=== PATIENT | male | born 1965 | race Caucasian/White ===

== ENCOUNTER → 2024-10-21 | Outpatient (CLI) | payer BC, SELFPAY ==
--- NOTE | 2024-10-21 12:21 | XR_ITS ---
Examination: Knee, right , 3 views Technique: Knee AP, lateral, oblique 3 views Date and time of exam: October 21, 2024 1227 hours INDICATIONS: Right knee pain beginning one month ago. FINDINGS: Severe osteopenia Moderate to advanced tricompartment osteoarthritis, most severe medial and patellofemoral joints No fractures IMPRESSION: Moderate to advanced tricompartment osteoarthritis
== END | disposition home or self-care (01) ==
LOC: CDIM 12:15
PROVIDERS: PCP Family Medicine; Referring Provider Family Medicine; Visit Provider Family Medicine
DX: M17.11 Unilateral primary osteoarthritis, right knee (principal)
CPT/HCPCS: 73562

== ENCOUNTER 2024-12-13 12:44 | Outpatient (AMB) | payer BC, SELFPAY ==
--- NOTE | 2024-12-13 12:57 | ORTHONT_ITS ---
Vital signs 12/13/24 13:00 Height 1.85 m Height Method Stated Weight 154.732 kg Weight Measurement Method Standing Scale BMI 45.0 BP 142/87 H Blood Pressure Source Automatic Cuff Blood Pressure Location Left Upper Arm Position Sitting Respiration 19 Pulse 66 Pulse Source Monitor Temp 97.6 F Temp Source Temporal Artery Scan Pulse Oximetry (%) 96 Oxygen Delivery Method Room Air Med/Allergies Allergies & Medications Allergies No Known Allergies Allergy (Verified 12/13/24 13:01) Medication Reconciliation amitriptyline 25 mg tablet 25 mg PO QDAY 10/26/23 [History Confirmed 12/13/24] amlodipine 10 mg-benazepril 40 mg capsule 1 cap PO QDAY 10/26/23 [History Confirmed 12/13/24] celecoxib 200 mg capsule 200 mg PO QDAY 10/26/23 [History Confirmed 12/13/24] cholecalciferol (vitamin D3) 25 mcg (1,000 unit) capsule (Vitamin D3) 25 mcg PO QDAY 10/26/23 [History Confirmed 12/13/24] doxazosin 4 mg tablet 4 mg PO HS 10/26/23 [History Confirmed 12/13/24] zolpidem 10 mg tablet 10 mg PO HS 10/26/23 [History Confirmed 12/13/24] Held on 10/26/23. Instructions: Resume on 10/27/23. Exam Exam Breathing is nonlabored. Patient has a normal mood and affect. Bilateral extremities were evaluated and demonstrates sensation intact to light touch. Palpable pedal pulses are present. No significant edema is present. Bilateral hips were examined. The patient has no pain with log roll of the hips. Internal rotation to 30 degrees and external rotation to 30 degrees is painless. Negative FADIR. Left knee was examined today. The left knee is in reasonable alignment. Range of motion from 0-120 degrees. Knee is stable to varus and valgus as well as AP translation with <5mm. Patient has a negative McMurrays. There is no pain with patellofemoral compression and no crepitus noted. The knee is nontender to palpation. The right knee was also examined. The right knee is in varus alignment. Range of motion from 0-115 degrees. Knee is stable to varus and valgus as well as AP translation with <5mm. Patient has a negative McMurrays. There is no pain with patellofemoral compression and no crepitus noted. The knee is tender to palpation medially. Nonweightbearing x-rays were reviewed. This demonstrates to space narrowing medially. Assessment and Plan Problem List (1) Arthritis of right knee: Status: Acute Plan: Patient is a pleasant 59-year-old male with right knee pain and right knee arthritis. We discussed different treatment options. I would recommend conservative treatment and weightbearing x-rays to better evaluate the severity. 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) MA Intake Visit Data Collection New Patient or Established: New Patient (never been to [facility]) Reason for Visit:: LEFT KNEE PAIN Seen by Clinical Staff ONLY (RN/MA): No PCP or OBGYN visit in last 3 months: Yes Hx Now: No Do You Feel Safe at Home: Yes Authorities Contacted: N/A Questionairres Past Medical History Past Medical History Have you ever been diagnosed with any of the following: Neurological Problems Seizures: No Cardiology Problems Congestive Heart Failure: No Hypertension: Yes Respiratory Problems Chronic Obstructive Pulmonary Disease (COPD): No Asthma: No Smoking: No Smoking Exposure: No Stomache/Intestinal Problems Gastrointestinal Bleed: Yes Hemorrhoids: Yes Obesity: Yes Genital/Urinary Problems Renal Disease: No Kidney Stones: Yes Musculoskeletal Problems Arthritis: Yes Endocrine Problems Diabetes Mellitus Type 1: No Diabetes Mellitus Type 2: No Blood Problems Sickle Cell Disease: No Other Problems Hospitalization: No Falls: No Blood Transfusions: No Anesthesia Reactions: No Chicken Pox: Yes Measles: No Mumps: No Cancer: No Subjective Visit Visit for: new patient and knee Immunization / Flu Flu Vaccine in the Last 12 Months: Yes Flu Vaccine Exclusion Criteria: Already Received History of Present Illness Chief complaint: bilateral knee pain worse on the right Henri is a pleasant 59-year-old male with right knee pain. The right knee pain has been increased within the last 7 months. Has not had any injections. He tried diclofenac oral medications in the past. Reports it helped somewhat. 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
[2024-12-13 13:00] VITALS: BP 142/87; PULSE 66; RESP 19; TEMP 36.4; O2SAT 96; BMI 45.0
--- NOTE | 2024-12-13 13:08 | XR_ITS ---
Examination: Bilateral knees 2 views Right lateral knee left lateral knee 2 views Right occipital the left ischial knee 2 views TECHNIQUE: Bilateral AP knees standing single view, bilateral PND standing single view flexion Standing right lateral knee left lateral knee 2 views Right axial knee left axial knee 2 views total 6 views Date and time: December 13, 2024, 1320 hours INDICATIONS: Right knee pain beginning in 7 months ago. FINDINGS: Advanced narrowing medial joint space right and left knee Bilateral moderate to advanced osteoarthritis patellofemoral joints No fracture is No patellar dislocations IMPRESSION: Advanced narrowing medial joint spaces right and left knee Bilateral moderate to advanced osteoarthritis patellofemoral joints
== END 2024-12-13 13:17 | disposition home or self-care (01) ==
PROVIDERS: PCP Family Medicine; Referring Provider Family Medicine; Supervising Provider Orthopaedic Surgery Adult Reconstructive Orthopaedic Surgery; Visit Provider Orthopaedic Surgery Adult Reconstructive Orthopaedic Surgery
DX: M17.11 Unilateral primary osteoarthritis, right knee (principal); M25.561 Pain in right knee; I10 Essential (primary) hypertension
CPT/HCPCS: 73564; 99204; G0463

== ENCOUNTER 2025-01-05 12:37 | Outpatient (AMB) | payer BC, SELFPAY ==
--- NOTE | 2025-01-05 13:05 | ORTHONT_ITS ---
Vital signs 01/05/25 13:10 Height 1.85 m Height Method Measured Weight 150.734 kg Weight Measurement Method Standing Scale BMI 44.0 BP 135/81 H Blood Pressure Source Automatic Cuff Blood Pressure Location Left Upper Arm Position Sitting Respiration 18 Pulse 65 Pulse Source Monitor Temp 97.1 F Temp Source Temporal Artery Scan Pulse Oximetry (%) 95 Oxygen Delivery Method Room Air Med/Allergies Allergies & Medications Allergies No Known Allergies Allergy (Verified 01/05/25 13:12) Medication Reconciliation amitriptyline 25 mg tablet 25 mg PO QDAY 10/26/23 [History Confirmed 01/05/25] amlodipine 10 mg-benazepril 40 mg capsule 1 cap PO QDAY 10/26/23 [History Confirmed 01/05/25] celecoxib 200 mg capsule 200 mg PO QDAY 10/26/23 [History Confirmed 01/05/25] cholecalciferol (vitamin D3) 25 mcg (1,000 unit) capsule (Vitamin D3) 25 mcg PO QDAY 10/26/23 [History Confirmed 01/05/25] doxazosin 4 mg tablet 4 mg PO HS 10/26/23 [History Confirmed 01/05/25] zolpidem 10 mg tablet 10 mg PO HS 10/26/23 [History Confirmed 01/05/25] Held on 10/26/23. Instructions: Resume on 10/27/23. Exam Exam Breathing is nonlabored. Patient has a normal mood and affect. Bilateral extremities were evaluated and demonstrates sensation intact to light touch. Palpable pedal pulses are present. No significant edema is present. Bilateral hips were examined. The patient has no pain with log roll of the hips. Internal rotation to 30 degrees and external rotation to 30 degrees is painless. Negative FADIR. Left knee was examined today. The left knee is in reasonable alignment. Range of motion from 0-120 degrees. Knee is stable to varus and valgus as well as AP translation with <5mm. Patient has a negative McMurrays. There is no pain with patellofemoral compression and no crepitus noted. The knee is nontender to palpation. The right knee was also examined. The right knee is in varus alignment. Range of motion from 0-115 degrees. Knee is stable to varus and valgus as well as AP translation with <5mm. Patient has a negative McMurrays. There is no pain with patellofemoral compression and no crepitus noted. The knee is tender to palpatio n medially. X-rays demonstrate complete joint space narrowing medially on both the right and left knee. There is varus deformity Assessment and Plan Problem List (1) Arthritis of right knee: Status: Acute Plan: Patient is a pleasant 59-year-old male with right knee pain and right knee arthritis. We discussed different treatment options. I would recommend conservative treatment as he is not an ideal candidate right now to BMI of 44. We discussed weight loss in great detail today. We discussed anti- inflammatories as well injections. He would like a cortisone injection today Recommend knee cortisone injection as patient would like to proceed with conservative treatment at this time. The risks and benefits of the procedure were reviewed with the patient and patient gave verbal consent to continue with the procedure. Procedure: performed by Dr. Mitchell Using sterile technique the Right knee was thoroughly prepped with alcohol, and approximately 1 cc of Kenalog 40 mg/mL and 4 cc of 1% lidocaine was injected without resistance into the medial tibial femoral joint space. The patient tolerated the procedure. Office Procedures GNS Level of Care Nursing/Assessment Patient Status: Established Patient Nursing Assessment/Reassesment: Medication Reconciliation, Update PMH in EMR and Vital Signs Coordination of Care: Complex Care and Chronic Disease 1-5, Education Complex Pt/Fam, Consent,records obtained, informed consent, Results/Orders obtained and Staff clarify orders Established Patient Charge Established Patient Point Assignment: 95 Established Patient Point Charge: EP Level 3 (80-115) Surgical Proc/IM SQ injection Major Surgical Procedure: Yes (KNEE INJECTION) Medication Given Medication Given Medication Given: Yes Documented Dose Given: 4 Route: Infiitration Medication Given Medication Given Medication Given: Yes Documented Dose Given: 1 Route: Infiitration Office Meds Xylocaine 10 mg/mL (1 %) injection solution Performing Provider: Ernie Mitchell MD Performing Location: [facility] Administered by: Charissa Chisholm on 01/05/25 13:40 Dose Route Admin Location Dispensed Lot Number Expiration Date [facility] [employer] 20 mL Infiltration 20 mL [id number] 03/21/28 43444-418-60 [facility] triamcinolone acetonide 40 mg/mL suspension for injection Performing Provider: Ernie Mitchell MD Performing Location: [facility] Administered by: Ernie Mitchell MD on 01/05/25 13:40 Dose Route Admin Location Dispensed Lot Number Expiration Date [facility] Hotel Guest [employer] Agent 40 mg intra-articular KNEE 1 mL [id number] 07/21/26 50855-146-02 [employer]AN[employer] Intake Visit Data Collection New Patient or Established: Established Patient (seen at [facility] within 3 years) Reason for Visit:: XRAY RESULTS/KNEE INJECTIONS Seen by Clinical Staff ONLY (RN/MA): No Correspondence Specialist Required: No PCP or OBGYN visit in last 3 months: Yes Hx Now: No Do You Feel Safe at Home: Yes Authorities Contacted: N/A Questionairres Past Medical History Past Medical History Have you ever been diagnosed with any of the following: Neurological Problems Seizures: No Cardiology Problems Congestive Heart Failure: No Hypertension: Yes Respiratory Problems Chronic Obstructive Pulmonary Disease (COPD): No Asthma: No Smoking: No Smoking Exposure: No Stomache/Intestinal Problems Gastrointestinal Bleed: Yes Hemorrhoids: Yes Obesity: Yes Genital/Urinary Problems Renal Disease: No Kidney Stones: Yes Musculoskeletal Problems Arthritis: Yes Endocrine Problems Diabetes Mellitus Type 1: No Diabetes Mellitus Type 2: No Blood Problems Sickle Cell Disease: No Other Problems Hospitalization: No Falls: No Blood Transfusions: No Anesthesia Reactions: No Chicken Pox: Yes Measles: No Mumps: No Cancer: No Subjective Visit Visit for: follow up visit and knee Immunization / Flu Flu Vaccine in the Last 12 Months: No Flu Vaccine Exclusion Criteria: No Exclusion Criteria History of Present Illness Chief complaint: XRAY RESULTS/KNEE INJECTIONS Henri is a pleasant 59-year-old male with right knee pain. The right knee pain has been increased within the last 7 months. Has not had any injections. He tried Celebrex oral medications in the past. Reports it helped somewhat. He has tried to lose weight. 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
[2025-01-05 13:10] VITALS: BP 135/81; PULSE 65; RESP 18; TEMP 36.2; O2SAT 95; BMI 44.0
== END 2025-01-05 13:32 | disposition home or self-care (01) ==
PROVIDERS: PCP Family Medicine; Referring Provider Family Medicine; Supervising Provider Orthopaedic Surgery Adult Reconstructive Orthopaedic Surgery; Visit Provider Orthopaedic Surgery Adult Reconstructive Orthopaedic Surgery
DX: M17.11 Unilateral primary osteoarthritis, right knee (principal); M25.561 Pain in right knee; I10 Essential (primary) hypertension; E66.9 Obesity, unspecified; Z68.41 Body mass index [BMI] 40.0-44.9, adult
CPT/HCPCS: 20610; 99213; J3301; J3490; G0463

== ENCOUNTER 2025-04-14 09:09 | Outpatient (AMB) | payer BC, SELFPAY ==
[2025-04-14 09:37] VITALS: BP 136/76; PULSE 63; RESP 19; TEMP 36.6; O2SAT 92; BMI 43.0
--- NOTE | 2025-04-14 09:37 | ORTHONT_ITS ---
Vital signs 04/14/25 09:37 Height 1.85 m Height Method Measured Weight 147.418 kg Weight Measurement Method Standing Scale BMI 43.0 BP 136/76 H Blood Pressure Source Automatic Cuff Blood Pressure Location Left Upper Arm Position Sitting Respiration 19 Pulse 63 Pulse Source Monitor Temp 97.9 F Temp Source Temporal Artery Scan Pulse Oximetry (%) 92 L Oxygen Delivery Method Room Air Med/Allergies Allergies & Medications Allergies No Known Allergies Allergy (Verified 04/14/25 09:38) Medication Reconciliation amitriptyline 25 mg tablet 25 mg PO QDAY 10/26/23 [History Confirmed 04/14/25] amlodipine 10 mg-benazepril 40 mg capsule 1 cap PO QDAY 10/26/23 [History Confirmed 04/14/25] celecoxib 200 mg capsule 200 mg PO QDAY 10/26/23 [History Confirmed 04/14/25] cholecalciferol (vitamin D3) 25 mcg (1,000 unit) capsule (Vitamin D3) 25 mcg PO QDAY 10/26/23 [History Confirmed 04/14/25] doxazosin 4 mg tablet 4 mg PO HS 10/26/23 [History Confirmed 04/14/25] zolpidem 10 mg tablet 10 mg PO HS 10/26/23 [History Confirmed 04/14/25] Held on 10/26/23. Instructions: Resume on 10/27/23. Exam Exam Breathing is nonlabored. Patient has a normal mood and affect. Bilateral extremities were evaluated and demonstrates sensation intact to light touch. Palpable pedal pulses are present. No significant edema is present. Bilateral hips were examined. The patient has no pain with log roll of the hips. Internal rotation to 30 degrees and external rotation to 30 degrees is painless. Negative FADIR. Left knee was examined today. The left knee is in reasonable alignment. Range of motion from 0-120 degrees. Knee is stable to varus and valgus as well as AP translation with <5mm. Patient has a negative McMurrays. There is no pain with patellofemoral compression and no crepitus noted. The knee is nontender to palpation. The right knee was also examined. The right knee is in varus alignment. Range of motion from 0-115 degrees. Knee is stable to varus and valgus as well as AP translation with <5mm. Patient has a negative McMurrays. There is no pain with patellofemoral compression and no crepitus noted. The knee is tender to palpat ion medially. X-rays demonstrate complete joint space narrowing medially on both the right and left knee. There is varus deformity Assessment and Plan Problem List (1) Arthritis of right knee: Status: Acute Plan: Patient is a pleasant 59-year-old male with right knee pain and right knee arthritis. We discussed different treatment options. I would recommend conservative treatment as he is not an ideal candidate right now to BMI of 44. We discussed weight loss in great detail today. We discussed anti- inflammatories as well injections. He would like a cortisone injection today Recommend knee cortisone injection as patient would like to proceed with conservative treatment at this time. The risks and benefits of the procedure were reviewed with the patient and patient gave verbal consent to continue with the procedure. Procedure: performed by Dr. Mitchell Using sterile technique the Right knee was thoroughly prepped with alcohol, and approximately 1 cc of Depo-Medrol 80mg/mL and 4 cc of 0.2% ropivacaine was injected without resistance into the medial tibial femoral joint space. The patient tolerated the procedure. Office Procedures GNS Level of Care Nursing/Assessment Patient Status: Established Patient Nursing Assessment/Reassesment: Medication Reconciliation, Update PMH in EMR and Vital Signs Coordination of Care: Complex Care and Chronic Disease 1-5, Education Complex Pt/Fam, Consent,records obtained, informed consent, Results/Orders obtained and Staff clarify orders Established Patient Charge Established Patient Point Assignment: 95 Established Patient Point Charge: EP Level 3 (80-115) Surgical Proc/IM SQ injection Minor Surgical Procedure: Yes (KNEE INJECTION ) Medication Given Medication Given Medication Given: Yes Documented Dose Given: 1 Route: Infiitration Medication Given Medication Given Medication Given: Yes Documented Dose Given: 4 Route: Infiitration Office Meds methylprednisolone acetate 80 mg/mL suspension for injection Performing Provider: Ernie Mitchell MD Performing Location: [facility] Administered by: Ernie Mitchell MD on 04/14/25 10:27 Dose Route Admin Location Dispensed Lot Number Expiration Date Pack age [facility] Radiotelegraphist 80 mg intra-articular 1 mL [id number] 12/19/26 [address]-6 7 [id number] [employer] ropivacaine (PF) 2 mg/mL (0.2 %) injection solution Performing Provider: Ernie Mitchell MD Performing Location: [facility] Administered by: Ernie Mitchell MD on 04/14/25 10:27 Dose Route Admin Location Dispensed Lot Number Expiration Date Pack age [facility] Radiotelegraphist 20 mL Infiltration 20 mL [id number] 07/21/27 22420-986-53 [id number] [facility] Intake Visit Data Collection New Patient or Established: Established Patient (seen at [facility] within 3 years) Reason for Visit:: 3 MONTH F/U RIGHT KNEE INJECTION Seen by Clinical Staff ONLY (RN/MA): No 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 PCP or OBGYN visit in last 3 months: Yes Hx Now: No Do You Feel Safe at Home: Yes Authorities Contacted: N/A Questionairres Past Medical History Past Medical History Have you ever been diagnosed with any of the following: Neurological Problems Seizures: No Cardiology Problems Congestive Heart Failure: No Hypertension: Yes Respiratory Problems Chronic Obstructive Pulmonary Disease (COPD): No Asthma: No Smoking: No Smoking Exposure: No Stomache/Intestinal Problems Gastrointestinal Bleed: Yes Hemorrhoids: Yes Obesity: Yes Genital/Urinary Problems Renal Disease: No Kidney Stones: Yes Musculoskeletal Problems Arthritis: Yes Endocrine Problems Diabetes Mellitus Type 1: No Diabetes Mellitus Type 2: No Blood Problems Sickle Cell Disease: No Other Problems Hospitalization: No Falls: No Blood Transfusions: No Anesthesia Reactions: No Chicken Pox: Yes Measles: No Mumps: No Cancer: No Subjective Visit Visit for: follow up visit and knee Immunization / Flu Flu Vaccine in the Last 12 Months: No Flu Vaccine Exclusion Criteria: No Exclusion Criteria History of Present Illness Chief complaint: 3 MONTH F/U RIGHT KNEE INJECTION Henri is a pleasant 59-year-old male with right knee pain. The right knee pain has been increased within the last 7 months. Has not had any injections. He tried Celebrex oral medications in the past. Reports it helped somewhat. He has tried to lose weight. 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
== END 2025-04-14 09:48 | disposition home or self-care (01) ==
LOC: HODSRG 09:09
PROVIDERS: PCP Family Medicine; Referring Provider Family Medicine; Supervising Provider Orthopaedic Surgery Adult Reconstructive Orthopaedic Surgery; Visit Provider Orthopaedic Surgery Adult Reconstructive Orthopaedic Surgery
DX: M25.561 Pain in right knee (principal); M17.11 Unilateral primary osteoarthritis, right knee; I10 Essential (primary) hypertension; E66.9 Obesity, unspecified; Z71.3 Dietary counseling and surveillance; Z68.41 Body mass index [BMI] 40.0-44.9, adult
CPT/HCPCS: 20610; 99213; J1010; J2795; G0463